=== PATIENT | female | born 1935 | race Caucasian/White ===

== ENCOUNTER 2018-02-02 07:17 | Emergency (ER) | payer OTHER ==
[~2018-02-02] VITALS: Ht 157.5 cm; Wt 56.7 kg
[~2018-02-02 07:17] MED LIST: ALTACE10 MG; ATENOLOL50 MG; DESPEC-DM TABL1 EAC1 PO; METFORMIN HCL500 MG; NORVASC10 MG; ZITHROMAX500 MG PO
== END 2018-02-02 08:55 | disposition home or self-care (01) ==
LOC: ER 07:17
DX: M25.512 Pain in left shoulder (principal)

== ENCOUNTER 2021-02-28 09:25 | Emergency (ER) | payer OTHER ==
[~2021-02-28] VITALS: Ht 152.4 cm; Wt 59.9 kg
[2021-02-28] MEDS ORDERED: CELEBREX100 MG PO (10:05)
== END 2021-02-28 10:13 | disposition home or self-care (01) ==
LOC: ER 09:25
DX: M79.641 Pain in right hand (principal)

== ENCOUNTER → 2021-09-19 | Emergency (ER) | payer OTHER ==
[~2021-09-19] VITALS: Ht 157.5 cm; Wt 58.1 kg
[~2021-09-19] MED LIST changes: +CELEBREX100 MG PO; +MECLIZINE HCL25 MG PO; +TOPROL XL50 M1 PO
== END | disposition home or self-care (01) ==
LOC: ER 11:30
DX: R42 Dizziness and giddiness (principal); Z03.818 Encounter for observation for suspected exposure to other biological agents ruled out

== ENCOUNTER 2021-11-06 09:02 | Outpatient (CLI) | payer OTHER | END 2021-11-06 09:04 | disposition home or self-care (01) | LOC: MAMO-SONO 09:02 | PROVIDERS: ATTEND Obstetrics & Gynecology | DX: N64.4 Mastodynia (principal) ==

== ENCOUNTER 2022-04-09 07:20 | Emergency (ER) | payer OTHER ==
[~2022-04-09] VITALS: Ht 154.9 cm; Wt 59.9 kg
[2022-04-09] MEDS ORDERED: CELEBREX100 MG PO (07:50)
[2022-04-09] MEDS ORDERED: DICLOFENAC POTA50 MG PO (09:54)
[2022-04-09] MEDS ORDERED: ORPHENADRINE C100 MG PO (09:54)
== END 2022-04-09 10:17 | disposition home or self-care (01) ==
LOC: ER 07:20
DX: M25.552 Pain in left hip (principal); I10 Essential (primary) hypertension

== ENCOUNTER 2022-09-06 09:23 | Emergency (ER) | payer OTHER ==
[~2022-09-06] VITALS: Ht 157.5 cm; Wt 59.0 kg
[~2022-09-06 09:23] MED LIST changes: +DICLOFENAC POTA50 MG PO; +ORPHENADRINE C100 MG PO
== END 2022-09-06 10:21 | disposition home or self-care (01) ==
LOC: ER 09:23
DX: U07.1 COVID-19 (principal); I10 Essential (primary) hypertension; J06.9 Acute upper respiratory infection, unspecified